=== PATIENT | female | born 1980 | race Caucasian/White ===

== ENCOUNTER 2018-01-02 12:00 | Emergency (ER) | payer BC, SELFPAY ==
[2018-01-02 12:18] VITALS: BP 125/90; PULSE 75; RESP 16; TEMP 36.6; O2SAT 100
--- NOTE | 2018-01-02 12:27 | ED_ITS ---
HPI - Chest Pain General Chief Complaint: Chest Pain Stated Complaint: chest pain Time Seen by Provider: 01/02/18 12:24 Source: patient Mode of arrival: ambulatory Limitations: no limitations History of Present Illness HPI narrative: Patient is an otherwise healthy 37-year-old female sent over from the walk-in clinic for evaluation of potential fluid overload and shortness of breath. Patient states that over the weekend she was in [place]. She states that on Tuesday she went to 1 of the IV Clinics in received a bag of fluids. She states that since there she has felt like she has been fluid overloaded and has had shortness of breath and lower extremity swelling. She states she overall she just does not feel very well. She went to the walk-in clinic where they thought that she was fluid overloaded and also had JVD. She was sent here for evaluation Related Data Home Medications Medication Instructions Recorded Confirmed ibuprofen 1 dose PO PRN PRN #0 11/23/10 01/02/18 multivitamin [Multiple Vitamins] 1 tab PO QDAY #0 tab 01/27/16 01/02/18 Calcium 1 tab PO DAILY 01/02/18 01/02/18 Otc Water Rentension Pill 1 tab PO PRN PRN 01/02/18 01/02/18 Vitamin C 1 tab PO DAILY 01/02/18 01/02/18 turmeric root extract 1 tab PO DAILY 01/02/18 01/02/18 Allergies Allergy/AdvReac Type Severity Reaction Status Date / Time No Known Drug Allergies Allergy Verified 01/02/18 14:39 Review of Systems Constitutional Reports fatigue and Denies fever(s) ENT Ears, Nose, Mouth, and Throat: Denies dizziness Cardiovascular Reports pedal edema, Reports edema, Reports leg edema, Denies palpitations and Reports dyspnea Respiratory Reports dyspnea Gastrointestinal Gastrointestinal: Denies abdominal pain, Denies nausea and Denies vomiting Genitourinary Denies dysuria Musculoskeletal Denies myalgias and Denies arthralgias Integumentary/Breasts Denies lesions and Denies rash Neurologic Denies dizziness Endocrine Reports fatigue and Denies palpitations PFSH Medical History Healthy adult (Acute) Surgical History History of tonsillectomy Family History Grandmother Age: 89 Stroke Mother Age: 55 Hypothyroidism, unspecified type Iron deficiency anemia, unspecified iron deficiency anemia type Sister Cardiomyopathy, peripartum Exam Initial Vital Signs Initial Vital Signs: Vital Signs Temperature 97.9 F 01/02/18 12:18 Pulse Rate 75 01/02/18 12:18 Respiratory Rate 16 01/02/18 12:18 Blood Pressure 125/90 01/02/18 12:18 Pulse Oximetry 100 01/02/18 12:18 Const General: cooperative, healthy appearing, comfortable, well developed, well groomed and No acute distress Orientation: alert, awake and oriented x3 HENMT Head: normal to inspection, normocephalic and atraumatic Neck Neck: full ROM, supple and No JVD Resp Effort & Inspection: normal respiratory effort Auscultation: clear to auscultation bilaterally Cardio Rate: regular rate Rhythm: regular rhythm Pulses: radial pulses present GI Inspection: normal to inspection and non-distended Palpation: soft, No firm and No tender Skin Lesions: no lesions Rashes: no rashes Neuro General: alert, awake and oriented x3 Cognition: normal cognition Speech: speech normal Gait: normal gait Motor: muscle tone normal throughout Extrem General: normal to inspection and capillary refill normal Psych Appearance: grossly normal and well kempt Course Orders Ordered: Discontinued Medications Furosemide (Lasix) 40 mg PO NOW ONE Stop: 01/02/18 14:36 Last Admin: 01/02/18 14:42 Dose: 40 mg Vital Signs - 8 hr 01/02/18 14:03 01/02/18 14:35 Pulse Rate 72 74 Respiratory Rate 22 18 Blood Pressure [Left Arm] 118/83 108/76 Pulse Oximetry 100 100 MDM - Chest Pain Lab Data Attestation: I reviewed the patient's lab results. Result diagrams: 01/02/18 12:40 01/02/18 12:40 Lab Results 01/02/18 01/02/18 01/02/18 Range/Units 12:40 12:40 12:40 WBC 11.6 H (4.5-11.0) X10^3/uL RBC 4.00 (4.0-5.2) X10^6/uL Hgb 12.5 (12.0-16.0) g/dL Hct 36.6 (36-46) % MCV 91.4 (80-100) fL MCH 31.2 (26-34) PG MCHC 34.1 (30-36) % RDW 13.2 (11.6-14.8) % Plt Count 351 (150-400) X10^3/uL Neut % (Auto) 48.8 L (50-75) % Lymph % (Auto) 43.0 H (25-40) % Ripley % (Auto) 6.0 (3-14) % Eos % (Auto) 1.4 L (2-4) % Baso % (Auto) 0.8 (0-2) % Neut # (Auto) 5700 (7380-9943) /uL PT 9.8 L (10.1-12.7) SECONDS INR 0.9 (0.9-1.3) APTT 27 (26.4-36.2) SECONDS Sodium 140 (137-145) mmol/L Potassium 3.3 L (3.4-5.1) mmol/L Chloride 104 (98-107) mmol/L Carbon Dioxide 28 (22-32) mmol/L BUN 17 (7-17) mg/dL Creatinine 0.90 (0.52-1.04) mg/dL Estimated GFR > 60.0 (>60) mL/min BUN/Creatinine Ratio 18.9 (6-22) Glucose 86 (70-100) mg/dL Calcium 9.0 (8.4-10.2) mg/dL Phosphorus (2.5-4.5) mg/dL Magnesium (1.6-2.3) mg/dL Total Bilirubin 0.4 (0.2-1.3) mg/dL AST 17 (14-36) IU/L ALT 21 (9-52) IU/L Alkaline Phosphatase 66 (38-126) U/L Total Creatine Kinase 80 (30-135) U/L Troponin I < 0.012 (0.01-0.034) ng/mL B-Natriuretic Peptide (<100) Total Protein 7.0 (6.3-8.2) g/dL Albumin 4.2 (3.5-5.0) g/dL Globulin 2.8 (1.7-4.1) g/dL Albumin/Globulin Ratio 1.5 (1.0-2.8) Lipase 49 (23-300) U/L Serum , Qual (Negative) 01/02/18 01/02/18 01/02/18 Range/Units 12:40 12:40 12:40 WBC (4.5-11.0) X10^3/uL RBC (4.0-5.2) X10^6/uL Hgb (12.0-16.0) g/dL Hct (36-46) % MCV (80-100) fL MCH (26-34) PG MCHC (30-36) % RDW (11.6-14.8) % Plt Count (150-400) X10^3/uL Neut % (Auto) (50-75) % Lymph % (Auto) (25-40) % Ripley % (Auto) (3-14) % Eos % (Auto) (2-4) % Baso % (Auto) (0-2) % Neut # (Auto) (1463-8725) /uL PT (10.1-12.7) SECONDS INR (0.9-1.3) APTT (26.4-36.2) SECONDS Sodium (137-145) mmol/L Potassium (3.4-5.1) mmol/L Chloride (98-107) mmol/L Carbon Dioxide (22-32) mmol/L BUN (7-17) mg/dL Creatinine (0.52-1.04) mg/dL Estimated GFR (>60) mL/min BUN/Creatinine Ratio (6-22) Glucose (70-100) mg/dL Calcium (8.4-10.2) mg/dL Phosphorus 3.3 (2.5-4.5) mg/dL Magnesium 1.9 (1.6-2.3) mg/dL Total Bilirubin (0.2-1.3) mg/dL AST (14-36) IU/L ALT (9-52) IU/L Alkaline Phosphatase (38-126) U/L Total Creatine Kinase (30-135) U/L Troponin I (0.01-0.034) ng/mL B-Natriuretic Peptide 96.7 (<100) Total Protein (6.3-8.2) g/dL Albumin (3.5-5.0) g/dL Globulin (1.7-4.1) g/dL Albumin/Globulin Ratio (1.0-2.8) Lipase (23-300) U/L Serum , Qual Negative (Negative) Imaging Data Chest x-ray: Radiologist's impression: PROCEDURE: XR CHEST 1V INDICATIONS: SOB TECHNIQUE: One view of the chest was acquired. COMPARISON: [facility], , CHEST 2 VIEW, 06/29/2009, 21:54. FINDINGS: Surgical changes and devices: None. Lungs and pleura: No pleural effusions or pneumothorax. Lungs are clear. Mediastinum: Mediastinal contours appear normal. Heart size is normal. Bones and chest wall: No suspicious bony lesions. Overlying soft tissues appear unremarkable. IMPRESSION: No acute pulmonary process. Dictated by: Elodia Myers M.D. on 01/02/2018 at 12:02 Approved by: Elodia Myers M.D. on 01/02/2018 at 12:02 CT scan - chest: Radiologist's impression: [address] [address] [address] Scan Report Signed Patient: Kiah Justice [facility]#: [id number] : 1980Acct:[id number] Age/Sex: 37 / FDate of Service: 01/02/18 Loc: ED Accession Number: [id number] Procedure: CT angio chest PE protocol Ordering Provider: Miki Davis D.O. PROCEDURE: CT ANGIO CHEST PE PROTOCOL INDICATIONS: Chest pain, shortness of breath TECHNIQUE: After the administration of intravenous contrast, 2 mm thick sections acquired from the pulmonary apices to the posterior costophrenic angles. 3-dimensional maximum intensity projection (MIP) coronal and sagittal reformats were then acquired through the thorax. For radiation dose reduction, the following was used: automated exposure control, adjustment of mA and/or kV according to patient size. COMPARISON: None. FINDINGS: Image quality: Excellent. Pulmonary arteries: Pulmonary arteries are normal in size, and demonstrate no intraluminal filling defects to suggest central pulmonary embolism. Lungs and pleura: Lungs are clear. No pleural effusions or pneumothorax. Central and peripheral airways are patent. Mediastinum: Heart size is normal, without pericardial effusion. No mediastinal or hilar adenopathy. Thoracic aorta is normal in caliber and enhancement. Esophagus is normal in caliber, without hiatal hernia. Bones and chest wall: No suspicious bony lesions. Ribs and thoracic spine appear intact throughout. Thyroid gland negative. No axillary or supraclavicular adenopathy. Abdomen: Visualized upper abdominal solid organs appear normal in the early arterial phase of enhancement. IMPRESSION: No pulmonary embolism. No acute consolidation. Dictated by: Valerio Daniels M.D. on 01/02/2018 at 13:52 Approved by: Valerio Daniels M.D. on 01/02/2018 at 13:58 [facility] Narrative Medical decision making narrative: patient had only very slight leukocytosis. This is nonspecific. Chest x-ray with was negative for pulmonary edema. CTA of the chest was negative for PE. Clinically patient did not appear to be fluid overloaded. No JVD was present on my exam. Afebrile. Electrolytes unremarkable. No emergent process was found. Will hold on any further workup for now. Patient was given return precautions. She expressed understanding and agreement with plan. Discharge Plan Departure Patient Disposition: Home Clinical Impression: Shortness of breath Discharge Date/Time: 01/02/18 14:49 Interventions: ED Discharge Assessment Last Done: 01/02/18 14:48 Instructions: Edema (Alternative Therapy) Activity Restrictions/Additional Instructions: No emergent process was found on your workup today. Recommend that you contact your primary care doctor for a follow-up. Return to the emergency department for any new or worsening symptoms. Prescriptions: No Action ibuprofen 200 mg Tablet 1 dose PO PRN PRN (Reason: Pain, Mild) Qty: 0 RF: 0 multivitamin [Multiple Vitamins] 1 EACH tablet 1 tab PO QDAY Qty: 0 RF: 0 Calcium 1 tab PO DAILY RF: 0 Otc Water Rentension Pill 1 tab PO PRN PRN (Reason: Edema) RF: 0 Vitamin C 1 tab PO DAILY RF: 0 turmeric root extract 1 tab PO DAILY RF: 0
[2018-01-02 12:41] VITALS: BP 118/89; PULSE 89; RESP 14; O2SAT 98
--- NOTE | 2018-01-02 12:42 | DI.CT.S_ITS ---
PROCEDURE: CT ANGIO CHEST PE PROTOCOL INDICATIONS: Chest pain, shortness of breath TECHNIQUE: After the administration of intravenous contrast, 2 mm thick sections acquired from the pulmonary apices to the posterior costophrenic angles. 3-dimensional maximum intensity projection (MIP) coronal and sagittal reformats were then acquired through the thorax. For radiation dose reduction, the following was used: automated exposure control, adjustment of mA and/or kV according to patient size. COMPARISON: None. FINDINGS: Image quality: Excellent. Pulmonary arteries: Pulmonary arteries are normal in size, and demonstrate no intraluminal filling defects to suggest central pulmonary embolism. Lungs and pleura: Lungs are clear. No pleural effusions or pneumothorax. Central and peripheral airways are patent. Mediastinum: Heart size is normal, without pericardial effusion. No mediastinal or hilar adenopathy. Thoracic aorta is normal in caliber and enhancement. Esophagus is normal in caliber, without hiatal hernia. Bones and chest wall: No suspicious bony lesions. Ribs and thoracic spine appear intact throughout. Thyroid gland negative. No axillary or supraclavicular adenopathy. Abdomen: Visualized upper abdominal solid organs appear normal in the early arterial phase of enhancement. IMPRESSION: No pulmonary embolism. No acute consolidation. Dictated by: Valerio Daniels M.D. on 01/02/2018 at 13:52 Approved by: Valerio Daniels M.D. on 01/02/2018 at 13:58
--- NOTE | 2018-01-02 12:45 | PC.NURSE ---
c/o generalized swelling in lower extremities and neck / face after IV vitamin and fluid treatment in [place]. Feels tired and + short of breath upon exertion. Decreased urine output. + flights x 2 in last 5 days to and from [facility]. Bilateral lower extremity edema noted.
[2018-01-02 12:47] LABS: Add Manual Diff / Slide Review NO; Basophils Percent Auto 0.8 % (0-2); Eosinophils Percent Auto 1.4 % (2-4); Hematocrit 36.6 % (36-46); Hemoglobin 12.5 g/dL (12.0-16.0); Mean Corpuscular HGB Conc 34.1 % (30-36); Mean Corpuscular Hemoglobin 31.2 PG (26-34); Mean Corpuscular Volume 91.4 fL (80-100); Neutrophils Absolute Auto 5700 /uL (3000-5900); Neutrophils Percent Auto 48.8 % (50-75); Platelet Count 351 X10^3/uL (150-400); Red Cell Distribution Width 13.2 % (11.6-14.8); White Blood Cell Count 11.6 X10^3/uL (4.5-11.0)
[2018-01-02 12:56] LABS: INR 0.9 (0.9-1.3); Prothrombin Time 9.8 SECONDS (10.1-12.7)
[2018-01-02 12:59] LABS: PTT Partial Thromboplastin Tim 27 SECONDS (26.4-36.2)
[2018-01-02 13:01] LABS: Alanine Aminotransferase 21 IU/L (9-52); Albumin 4.2 g/dL (3.5-5.0); Albumin Globulin Ratio 1.5 (1.0-2.8); Alkaline Phosphatase 66 U/L (38-126); Aspartate Aminotransferase 17 IU/L (14-36); BUN Creatinine Ratio 18.9 (6-22); Bilirubin Total 0.4 mg/dL (0.2-1.3); Blood Urea Nitrogen 17 mg/dL (7-17); Carbon Dioxide 28 mmol/L (22-32); Chloride 104 mmol/L (98-107); Creatine Kinase 80 U/L (30-135); Estimated Glomerular Filt Rate > 60.0 mL/min (>60); Globulin 2.8 g/dL (1.7-4.1); Glucose 86 mg/dL (70-100); HEMOLYSIS < 15 (0-50); Lipase 49 U/L (23-300); Potassium 3.3 mmol/L (3.4-5.1); Sodium 140 mmol/L (137-145)
[2018-01-02 13:05] LABS: Pregnancy Test Serum,Qual Negative (Negative)
[2018-01-02 13:22] LABS: B Type Natriuretic Peptide 96.7 (<100)
[2018-01-02 13:23] LABS: Troponin I < 0.012 ng/mL (0.01-0.034)
[2018-01-02 13:33] LABS: Magnesium 1.9 mg/dL (1.6-2.3); Phosphorous 3.3 mg/dL (2.5-4.5)
[2018-01-02 14:03] VITALS: BP 118/83; PULSE 72; RESP 22; O2SAT 100
[2018-01-02 14:35] VITALS: BP 108/76; PULSE 74; RESP 18; O2SAT 100
[2018-01-02] MEDS: FUROSEMIDE 40 MG TABLET PO (14:42)
== END 2018-01-02 14:49 | disposition home or self-care (01) ==
PROVIDERS: Emergency Provider Emergency Medicine; Family Provider Physician Assistant; PCP Physician Assistant
DX: R06.02 Shortness of breath (principal); R07.89 Other chest pain
CPT/HCPCS: 36591; 71045; 71275; 80053; 82550; 82553; 83690; 83735; 83880; 84100; 84484; 84703; 85025; 85610; 85730; 93005; 93010; 99283; 99285; Q9967

== ENCOUNTER → 2018-04-26 18:53 | Outpatient (CLI) | payer BC, SELFPAY ==
[2018-04-26 19:21] LABS: Add Manual Diff / Slide Review NO; Basophils Percent Auto 0.8 % (0-2); Eosinophils Percent Auto 4.7 % (2-4); Hematocrit 37.5 % (36-46); Hemoglobin 12.6 g/dL (12.0-16.0); Lymphocytes Percent Auto 37.7 % (25-40); Mean Corpuscular HGB Conc 33.5 % (30-36); Mean Corpuscular Hemoglobin 30.3 PG (26-34); Mean Corpuscular Volume 90.5 fL (80-100); Monocytes Percent Auto 6.7 % (3-14); Neutrophils Absolute Auto 3100 /uL (1500-7000); Neutrophils Percent Auto 50.1 % (50-75); Platelet Count 354 X10^3/uL (150-400); Red Blood Cell Count 4.15 X10^6/uL (4.0-5.2); Red Cell Distribution Width 13.2 % (11.6-14.8); White Blood Cell Count 6.3 X10^3/uL (4.5-11.0)
[2018-04-26 20:04] LABS: Alanine Aminotransferase 22 IU/L (9-52); Albumin 4.4 g/dL (3.5-5.0); Albumin Globulin Ratio 1.3 (1.0-2.8); Alkaline Phosphatase 76 U/L (38-126); Aspartate Aminotransferase 15 IU/L (14-36); Bilirubin Total 0.2 mg/dL (0.2-1.3); Blood Urea Nitrogen 21 mg/dL (7-17); Calcium 9.1 mg/dL (8.4-10.2); Carbon Dioxide 25 mmol/L (22-32); Chloride 104 mmol/L (98-107); Estimated Glomerular Filt Rate > 60.0 mL/min (>60); Globulin 3.3 g/dL (1.7-4.1); Glucose 98 mg/dL (70-100); HEMOLYSIS < 15 (0-50); Potassium 3.9 mmol/L (3.4-5.1); Sodium 140 mmol/L (137-145); Total Protein 7.7 g/dL (6.3-8.2)
[2018-04-26 20:22] LABS: Free T3, Triiodothyronine Free 3.76 pg/mL (2.77-5.27); Free T4, Direct Thyroxine 0.94 ng/dL (0.78-2.19)
[2018-04-26 20:35] LABS: Thyroid Stimulating Hormone 1.37 uIU/mL (0.47-4.68)
[2018-04-26 20:39] LABS: Ferritin 8.7 ng/mL (6.27-137)
[2018-05-01 19:37] LABS: Dehydroepiandrosterone Sulfate 113 mcg/dL (23-266); Estradiol 49 pg/mL
[2018-05-01 23:45] LABS: Progesterone < 0.5 ng/mL
== END ==
PROVIDERS: Family Provider Physician Assistant; PCP Physician Assistant; Visit Provider Acupuncturist
DX: Z00.00 Encounter for general adult medical examination without abnormal findings (principal)
CPT/HCPCS: 36415; 80053; 82627; 82670; 82728; 83516; 84144; 84403; 84439; 84443; 84481; 85025; 86255

== ENCOUNTER → 2018-09-30 08:02 | Outpatient (CLI) | payer BC, SELFPAY ==
[2018-09-30 09:10] LABS: BUN Creatinine Ratio 18.8 (6-22); Blood Urea Nitrogen 15 mg/dL (7-17); Calcium 9.8 mg/dL (8.4-10.2); Carbon Dioxide 28 mmol/L (22-32); Chloride 103 mmol/L (98-107); Estimated Glomerular Filt Rate > 60.0 mL/min (>60); Glucose 93 mg/dL (70-100); HEMOLYSIS < 15 (0-50); Potassium 4.1 mmol/L (3.4-5.1); Sodium 137 mmol/L (137-145)
[2018-09-30 09:39] LABS: Cortisol AM (Before 10AM) 15.1 ug/dL (4.46-22.7)
[2018-09-30 09:44] LABS: Ferritin 15.9 ng/mL (6.27-137)
[2018-09-30 10:06] LABS: Estradiol, Total 135.7 pg/mL
== END ==
PROVIDERS: Family Provider Physician Assistant; PCP Physician Assistant; Visit Provider Acupuncturist
DX: N92.6 Irregular menstruation, unspecified (principal)
CPT/HCPCS: 36415; 80048; 82533; 82670; 82728; 84144

== ENCOUNTER → 2020-01-21 15:58 | Outpatient (CLI) | payer BC, SELFPAY ==
--- NOTE | 2020-01-21 16:02 | DI.RAD.S_ITS ---
PROCEDURE: XR CHEST 2V INDICATIONS: cough x3 weeks h/o multiple pneumonias TECHNIQUE: 2 views of the chest were acquired. COMPARISON: None. FINDINGS: Surgical changes and devices: None. Lungs and pleura: Lungs are clear. No pleural effusions or pneumothorax. Mediastinum: Mediastinal contours are normal. Heart size is normal. Bones and chest wall: No suspicious bony abnormalities. Soft tissues appear unremarkable. IMPRESSION: No acute cardiopulmonary process demonstrated radiographically. Dictated by: Tong Winslow M.D. on 01/21/2020 at 16:08 Approved by: Tong Winslow M.D. on 01/21/2020 at 16:09
== END ==
PROVIDERS: Family Provider Physician Assistant; PCP Physician Assistant; Referring Provider Physician Assistant; Visit Provider Physician Assistant
DX: R05 Cough (principal)
CPT/HCPCS: 71046

== ENCOUNTER → 2020-03-13 10:10 | Outpatient (CLI) | payer BC, SELFPAY ==
[2020-03-13 10:50] LABS: Add Manual Diff / Slide Review NO; Basophils Absolute Auto 0 /uL (0-100); Basophils Percent Auto 0.9 % (0-2); Eosinophils Absolute Auto 300 /uL (0-450); Eosinophils Percent Auto 4.6 % (2-4); Hematocrit 37.8 % (36-46); Hemoglobin 12.6 g/dL (12.0-16.0); Lymphocytes Absolute Auto 1700 /uL (1100-4500); Lymphocytes Percent Auto 31.1 % (25-40); Mean Corpuscular HGB Conc 33.3 % (30-36); Mean Corpuscular Hemoglobin 30.3 PG (26-34); Monocytes Absolute Auto 400 /uL (0-900); Monocytes Percent Auto 7.7 % (3-14); Neutrophils Absolute Auto 3100 /uL (1500-7000); Neutrophils Percent Auto 55.7 % (50-75); Platelet Count 345 X10^3/uL (150-400); Red Blood Cell Count 4.15 X10^6/uL (4.0-5.2); Red Cell Distribution Width 13.2 % (11.6-14.8); White Blood Cell Count 5.6 X10^3/uL (4.5-11.0)
[2020-03-13 11:14] LABS: Alanine Aminotransferase 14 IU/L (<35); Albumin 4.2 g/dL (3.5-5.0); Albumin Globulin Ratio 1.3 (1.0-2.8); Alkaline Phosphatase 66 U/L (38-126); Aspartate Aminotransferase 19 IU/L (14-36); BUN Creatinine Ratio 15.9 (6-22); Bilirubin Total 0.5 mg/dL (0.2-1.3); Blood Urea Nitrogen 13 mg/dL (7-17); Carbon Dioxide 29 mmol/L (22-32); Chloride 105 mmol/L (98-107); Cholesterol 212 mg/dL (140-199); Estimated Glomerular Filt Rate > 60.0 mL/min (>60); Globulin 3.2 g/dL (1.7-4.1); Glucose 93 mg/dL (70-100); HDL Cholesterol 53 mg/dL (40-60); HEMOLYSIS < 15 (0-50); LDL Cholesterol Calculated 123 mg/dL (<100); Potassium 3.8 mmol/L (3.4-5.1); Sodium 137 mmol/L (137-145); Total Protein 7.4 g/dL (6.3-8.2); Triglycerides 178 mg/dL (35-150)
[2020-03-13 11:35] LABS: Total Iron Binding Capacity 380 ug/dL (265-497)
[2020-03-13 11:42] LABS: Ferritin 8 ng/mL (6-137)
== END ==
PROVIDERS: Family Provider Physician Assistant; PCP Registered Nurse; Referring Provider Registered Nurse; Visit Provider Registered Nurse
DX: K21.9 Gastro-esophageal reflux disease without esophagitis (principal); D50.9 Iron deficiency anemia, unspecified; Z82.49 Family history of ischemic heart disease and other diseases of the circulatory system
CPT/HCPCS: 36415; 80053; 80061; 82728; 83550; 85025